=== PATIENT | female | born 1980 | race Caucasian/White ===

== ENCOUNTER → 2016-11-11 | Outpatient (CLI) | payer BC ==
[~2016-11-11] MED LIST: FERR1TAB23 PO; LEVO100T PO; PRENTAB26 PO
== END | disposition home or self-care (01) ==
LOC: C.MAMM 09:59
PROVIDERS: ATTEND Family Medicine
DX: M85.80 Other specified disorders of bone density and structure, unspecified site (principal); M81.0 Age-related osteoporosis without current pathological fracture

== ENCOUNTER → 2017-01-03 | Outpatient (CLI) | payer BC ==
[2017-01-03 11:26] LABS: CALCIUM 9.3 mg/dl (8.5-10.1); CREATININE 0.79 mg/dl (0.60-1.20)
[2017-01-03 11:47] LABS: CALCIUM URINE < 5.0 mg/dl; URINE COLLECTION TIME 24 HOURS
[2017-01-06 22:19] LABS: ALBUMIN 4.2 G/DL (3.8-4.8); GAMMA GLOBULIN 1.3 G/DL (0.8-1.7); TOTAL PROTEIN 7.1 G/DL (6.2-8.3)
== END | disposition home or self-care (01) ==
LOC: C.LAB1850 09:47
PROVIDERS: ATTEND Internal Medicine Rheumatology
DX: M81.0 Age-related osteoporosis without current pathological fracture (principal); M80.00XA Age-related osteoporosis with current pathological fracture, unspecified site, initial encounter for fracture; E55.9 Vitamin D deficiency, unspecified; E61.8 Deficiency of other specified nutrient elements; Z87.81 Personal history of (healed) traumatic fracture

== ENCOUNTER → 2017-03-27 | Outpatient (CLI) | payer BC ==
[2017-03-27 10:00] LABS: THYROID STIMULATING HORMONE 2.76 uIu/ml (0.300-4.500)
== END | disposition home or self-care (01) ==
LOC: C.LAB1850 08:18
PROVIDERS: ATTEND Physician Assistant
DX: E03.9 Hypothyroidism, unspecified (principal)

== ENCOUNTER → 2017-05-22 | Outpatient (CLI) | payer BC ==
[2017-05-22 10:06] LABS: THYROID STIMULATING HORMONE 3.13 uIu/ml (0.300-4.500)
== END | disposition home or self-care (01) ==
LOC: C.LAB1850 08:36
PROVIDERS: ATTEND Physician Assistant
DX: E28.8 Other ovarian dysfunction (principal); E03.9 Hypothyroidism, unspecified

== ENCOUNTER → 2017-06-27 | Outpatient (CLI) | payer BC ==
[2017-06-27 10:03] LABS: CALCIUM URINE 8.6 mg/dl
[2017-06-27 10:10] LABS: CREATININE 0.67 mg/dl (0.60-1.20)
[2017-06-27 10:11] LABS: CALCIUM 9.6 mg/dl (8.5-10.1)
== END | disposition home or self-care (01) ==
LOC: C.LAB1850 08:37
PROVIDERS: ATTEND Internal Medicine Rheumatology
DX: M85.80 Other specified disorders of bone density and structure, unspecified site (principal); E55.9 Vitamin D deficiency, unspecified; E61.8 Deficiency of other specified nutrient elements; Z87.81 Personal history of (healed) traumatic fracture

== ENCOUNTER → 2017-09-17 | Outpatient (CLI) | payer BC ==
[2017-09-20 02:42] LABS: CHLAMYDIA TRACH RNA*** NOT DETECTED (NOT DETECTED); GC (NEIS GONORRHOEAE)RNA** NOT DETECTED (NOT DETECTED)
== END | disposition home or self-care (01) ==
LOC: C.LABSPEC 17:24
PROVIDERS: ATTEND Obstetrics & Gynecology
DX: N89.8 Other specified noninflammatory disorders of vagina (principal)

== ENCOUNTER → 2017-09-25 | Outpatient (CLI) | payer BC ==
[2017-09-25 18:31] LABS: URINE APPEARANCE CLEAR (CLEAR); URINE BILIRUBIN NEG (NEG); URINE COLOR YELLOW; URINE NITRITE NEG (NEG); URINE PH 7.5 (4.5-7.5); URINE SPECIFIC GRAVITY 1.012 (1.000-1.030); UROBILINOGEN NEG (NEG)
[2017-09-25 18:44] LABS: MANUAL MICROSCOPIC REQUIRED? NO; REVIEW REQ? NO
== END | disposition home or self-care (01) ==
LOC: C.LABSPEC 17:20
PROVIDERS: ATTEND Obstetrics & Gynecology
DX: O09.521 Supervision of elderly multigravida, first trimester (principal)